=== PATIENT | male | born 1995 | race Caucasian/White ===

== ENCOUNTER 2016-12-31 11:35 | Emergency (ER) | payer OTHER ==
[2016-12-31 13:28] LABS: UA SPECIFIC GRAVITY 1.025 (1.005-1.035); microscopic required? YES; urine erythrocyte NEGATIVE (NEGATIVE)
[2016-12-31 16:10] VITALS: BP 131/74
== END 2016-12-31 16:22 | disposition home or self-care (01) ==
LOC: ED 11:35
PROVIDERS: Emergency Medicine
DX: N39.0 Urinary tract infection, site not specified (principal); R31.0 Gross hematuria; F17.200 Nicotine dependence, unspecified, uncomplicated; J45.909 Unspecified asthma, uncomplicated
CPT/HCPCS: 99406

== ENCOUNTER 2018-05-24 20:21 | Emergency (ER) | payer SELFPAY ==
[~2018-05-24] VITALS: Ht 180.3 cm; Wt 153.3 kg
[2018-05-24 20:34] VITALS: BP 112/78; Ht 180.3 cm; Wt 153.3 kg
== END 2018-05-24 21:29 | disposition home or self-care (01) ==
LOC: ED 20:21
DX: K12.0 Recurrent oral aphthae (principal); J45.909 Unspecified asthma, uncomplicated; F41.9 Anxiety disorder, unspecified

== ENCOUNTER 2018-07-25 18:43 | Inpatient (IN) | payer SELFPAY ==
[~2018-07-25] VITALS: Ht 180.3 cm; Wt 153.4 kg
[2018-07-25 19:16] VITALS: Ht 180.3 cm; Wt 153.4 kg
[2018-07-25 21:05] LABS: BASOPHIL % 0.4 % (0-2); PLATELET COUNT 267 x10^3mcL (130-400); RED CELL DISTRIBUTION WIDTH 14.3 % (11.5-14.5)
[2018-07-25 21:19] LABS: CALCIUM 8.8 mg/dL (8.5-10.1); CARBON DIOXIDE 28.8 mmol/L (21-32); CHLORIDE SERUM 107 mmol/L (98-107); CREATININE SERUM 0.9 mg/dL (0.7-1.3); GFR1 > 60 mL/min; GLUCOSE SERUM 79 mg/dL (74-106); SODIUM SERUM 142 mmol/L (136-145)
[2018-07-25 21:24] LABS: ALBUMIN 3.7 g/dL (3.4-5.0); ALKALINE PHOSPHATASE 93 U/L (46-116); ALT/SGPT 37 U/L (16-63); AST/SGOT 25 U/L (15-37)
[2018-07-25] MEDS ORDERED: ALBUTEROL0.63 MG/3 (23:02)
[2018-07-25 23:53] LABS: microscopic required? YES; urine erythrocyte TRACE (NEGATIVE)
[2018-07-26 00:04] VITALS: BP 122/70
[2018-07-26 00:12] LABS: AMPHETAMINE QUAL UR NONE DETECTED (See below)
[2018-07-26 00:12] LABS: MAGNESIUM 2.1 mg/dL (1.8-2.4); PHOSPHOROUS 4.1 mg/dL (2.5-4.9)
[2018-07-26 00:13] LABS: CHOLESTEROL/HDL RATIO 4.1
[2018-07-26 04:35] VITALS: BP 112/61
[2018-07-26 07:10] LABS: BASOPHIL % 0.3 % (0-2); PLATELET COUNT 233 x10^3mcL (130-400)
[2018-07-26 07:32] LABS: MAGNESIUM 2.2 mg/dL (1.8-2.4)
[2018-07-26 08:50] VITALS: BP 114/87
[2018-07-26 12:36] VITALS: BP 108/71
[2018-07-26 13:54] LABS: CALCIUM 8.6 mg/dL (8.5-10.1); CARBON DIOXIDE 27.4 mmol/L (21-32); CHLORIDE SERUM 109 mmol/L (98-107); CREATININE SERUM 0.8 mg/dL (0.7-1.3); GFR1 > 60 mL/min; GLUCOSE SERUM 89 mg/dL (74-106); POTASSIUM SERUM 4.1 mmol/L (3.5-5.1); SODIUM SERUM 145 mmol/L (136-145)
[2018-07-26 16:46] VITALS: BP 115/61
[2018-07-26 21:42] VITALS: BP 121/70
[2018-07-27 05:48] VITALS: BP 124/71
[2018-07-27 06:45] LABS: BASOPHIL % 0.4 % (0-2); PLATELET COUNT 235 x10^3mcL (130-400); RED CELL DISTRIBUTION WIDTH 13.6 % (11.5-14.5)
[2018-07-27 07:08] LABS: CALCIUM 8.2 mg/dL (8.5-10.1); CARBON DIOXIDE 28.2 mmol/L (21-32); CHLORIDE SERUM 106 mmol/L (98-107); CREATININE SERUM 0.9 mg/dL (0.7-1.3); GFR1 > 60 mL/min; GLUCOSE SERUM 86 mg/dL (74-106); POTASSIUM SERUM 4.1 mmol/L (3.5-5.1); SODIUM SERUM 140 mmol/L (136-145)
[2018-07-27 09:41] VITALS: BP 101/61
[2018-07-27 13:07] VITALS: BP 113/74
[2018-07-27] MEDS ORDERED: QVAR REDIHALE10.6 G1 IH (14:11)
[2018-07-27] MEDS ORDERED: PROVENTIL0.09 MG/A1 INH (14:12)
[2018-07-27 15:45] VITALS: BP 113/74
== END 2018-07-27 20:20 | disposition home or self-care (01) | DRG 202 ==
LOC: ED 18:43 → DU 23:02
PROVIDERS: Emergency Medicine; ADMIT Internal Medicine
DX: J45.901 Unspecified asthma with (acute) exacerbation (principal); Z68.42 Body mass index [BMI] 45.0-49.9, adult; F41.9 Anxiety disorder, unspecified; E66.01 Morbid (severe) obesity due to excess calories; F17.210 Nicotine dependence, cigarettes, uncomplicated; G47.30 Sleep apnea, unspecified; Z83.2 Family history of diseases of the blood and blood-forming organs and certain disorders involving the immune mechanism; Z91.19 Patient's noncompliance with other medical treatment and regimen
CPT/HCPCS: 83880; 87804; G0378; J1644; J7030; J7620; J7626; Q9967

== ENCOUNTER 2018-11-05 16:35 | Emergency (ER) | payer BC, MEDICAID ==
[~2018-11-05] VITALS: Ht 180.3 cm; Wt 165.3 kg
[~2018-11-05 16:35] MED LIST: ALBUTEROL0.63 MG/3; PROVENTIL0.09 MG/A1 INH; QVAR REDIHALE10.6 G1 IH
[2018-11-05 16:43] VITALS: Ht 180.3 cm; Wt 165.3 kg
[2018-11-05 19:44] VITALS: BP 107/62
== END 2018-11-05 19:44 | disposition left against medical advice (07) ==
LOC: ED 16:35
DX: Z53.21 Procedure and treatment not carried out due to patient leaving prior to being seen by health care provider (principal)

== ENCOUNTER 2019-01-08 21:18 | Emergency (ER) | payer BC, MEDICAID ==
[~2019-01-08] VITALS: Ht 180.3 cm; Wt 159.4 kg
[2019-01-08 21:23] VITALS: Ht 180.3 cm; Wt 159.4 kg
[2019-01-08 23:45] VITALS: BP 110/53
== END 2019-01-09 00:55 | disposition home or self-care (01) ==
LOC: ED 21:18
DX: R51 Headache (principal); R11.2 Nausea with vomiting, unspecified; J45.909 Unspecified asthma, uncomplicated; F41.9 Anxiety disorder, unspecified
CPT/HCPCS: 82962; J0780; Q0162

== ENCOUNTER 2019-03-09 11:30 | Emergency (ER) | payer BC, MEDICAID ==
[~2019-03-09] VITALS: Ht 180.3 cm; Wt 154.7 kg
[2019-03-09 11:37] VITALS: Ht 180.3 cm; Wt 154.7 kg
[2019-03-09 12:29] LABS: BASOPHIL % 0.2 % (0-2); PLATELET COUNT 243 x10^3mcL (130-400); RED CELL DISTRIBUTION WIDTH 13.7 % (11.5-14.5)
[2019-03-09 12:35] LABS: CALCIUM 8.6 mg/dL (8.5-10.1); CARBON DIOXIDE 25.7 mmol/L (21-32); CHLORIDE SERUM 107 mmol/L (98-107); CREATININE SERUM 0.8 mg/dL (0.7-1.3); GFR1 > 60 mL/min; GLUCOSE SERUM 92 mg/dL (74-106); POTASSIUM SERUM 4.1 mmol/L (3.5-5.1); SODIUM SERUM 143 mmol/L (136-145)
[2019-03-09 12:39] LABS: ALBUMIN 3.4 g/dL (3.4-5.0); ALKALINE PHOSPHATASE 98 U/L (46-116); ALT/SGPT 37 U/L (16-63); AST/SGOT 25 U/L (15-37); BILIRUBIN TOTAL 0.5 mg/dL (0.20-1.00); TOTAL PROTEIN, SERUM 7.1 g/dL (6.4-8.2)
[2019-03-09 13:26] VITALS: BP 115/55
== END 2019-03-09 13:26 | disposition home or self-care (01) ==
LOC: ED 11:30
PROVIDERS: Specialist
DX: J40 Bronchitis, not specified as acute or chronic (principal); F41.9 Anxiety disorder, unspecified; F17.210 Nicotine dependence, cigarettes, uncomplicated; R42 Dizziness and giddiness; R11.2 Nausea with vomiting, unspecified
CPT/HCPCS: J1885; Q0092

== ENCOUNTER 2019-04-30 20:45 | Emergency (ER) | payer BC, MEDICAID ==
[~2019-04-30] VITALS: Ht 180.3 cm; Wt 154.2 kg
[2019-04-30 20:48] VITALS: Ht 180.3 cm; Wt 154.2 kg
[2019-05-01] VITALS: BP 108/63
== END 2019-05-01 | disposition home or self-care (01) ==
LOC: ED 20:45
DX: M94.0 Chondrocostal junction syndrome [Tietze] (principal)
CPT/HCPCS: 82962; 87804; J1885; Q0092; Q0162

== ENCOUNTER 2019-07-06 13:25 | Emergency (ER) | payer BC, MEDICAID ==
[~2019-07-06] VITALS: Ht 180.3 cm; Wt 115.2 kg
[2019-07-06 13:44] VITALS: Ht 180.3 cm; Wt 115.2 kg
[2019-07-06 15:54] VITALS: BP 121/68
== END 2019-07-06 15:54 | disposition home or self-care (01) ==
LOC: ED 13:25
DX: K42.9 Umbilical hernia without obstruction or gangrene (principal); J45.909 Unspecified asthma, uncomplicated

== ENCOUNTER 2020-04-02 08:34 | Emergency (ER) | payer BC ==
[~2020-04-02] VITALS: Ht 408.9 cm; Wt 137.4 kg
[2020-04-02 08:48] VITALS: Ht 408.9 cm; Wt 137.4 kg
[2020-04-02 09:36] VITALS: BP 127/80
== END 2020-04-02 09:36 | disposition home or self-care (01) ==
LOC: ED 08:34
DX: L02.211 Cutaneous abscess of abdominal wall (principal); L02.416 Cutaneous abscess of left lower limb; L02.415 Cutaneous abscess of right lower limb; A49.02 Methicillin resistant Staphylococcus aureus infection, unspecified site; J45.909 Unspecified asthma, uncomplicated